=== PATIENT | male | born 1985 | race Caucasian/White ===

== ENCOUNTER 2023-01-24 04:22 | Emergency (ER) | payer OTHER, SELFPAY ==
[2023-01-24 04:25] VITALS: BP 146/79; PULSE 94; PULSE 95; RESP 18; TEMP 36.8; O2SAT 97; O2SAT 98; BMI 23.0
--- NOTE | 2023-01-24 04:26 | DI.CT.S_ITS ---
PROCEDURE: CT ABDOMEN PELVIS W CON INDICATIONS: Severe lower abd pain; hx ulcerative colitis TECHNIQUE: After the administration of IV contrast, axial sections were acquired from the lung bases to the pubic symphysis. Coronal and sagittal reformats were performed. For radiation dose reduction, the following was used: automated exposure control, adjustment of mA and/or kV according to patient size. COMPARISON: None. FINDINGS: Image quality: Excellent. Lung bases: Unremarkable. Small hiatal hernia. Heart: No significant findings. ABDOMEN: Liver: Normal size. Mild hepatic steatosis.. Gallbladder: Unremarkable. Biliary ducts: Unremarkable. Pancreas: Unremarkable. Spleen: Unremarkable. Adrenal Glands: Unremarkable. Kidneys and Ureters: Unremarkable. Stomach and Bowel: Stomach, small bowel loops, and colon are normal in caliber. There is diffuse colonic wall thickening involving sigmoid colon and rectum consistent with colitis/proctitis. There is also mild thickening of the descending colon. Diverticulosis. No acute diverticulitis. Moderate amount of stool in proximal colon. Peritoneum: No abnormal intraperitoneal fluid. No free air. Ventral Wall: No hernia. Abdominal Nodes: No retroperitoneal or mesenteric adenopathy by size criteria. Vessels: Aorta and inferior vena cava are normal in size. PELVIS: Pelvic Organs: Unremarkable. Bladder: Unremarkable. Pelvic Nodes: No enlarged lymph nodes. Miscellaneous: No inguinal hernias are seen. Bones: Unremarkable. IMPRESSION: 1. Diffuse colonic wall thickening involving sigmoid colon and the rectum. There is also mild thickening of the descending colon. The CT findings are consistent with colitis/proctitis. Differential diagnoses are inflammatory bowel disease and infectious colitis. 2. Diverticulosis without acute diverticulitis. 3. Moderate amount of stool in proximal colon. No significant discrepancy with the steward/stewardess night radiology preliminary report. Dictated by: Jacinta Giles M.D. on 01/24/2023 at 7:24 Approved by: Jacinta Giles M.D. on 01/24/2023 at 7:31
[2023-01-24 04:30] VITALS: BP 129/71; PULSE 97; O2SAT 97
[2023-01-24] MEDS: ONDANSETRON 4 MG/2 ML INJ IV (04:33)
[2023-01-24] MEDS: LACTATED RINGERS 1,000 ML 1000 ML IV (04:33)
[2023-01-24] MEDS: HYDROMORPHONE 0.5 MG INJ IV ×3 (04:33→07:06)
[2023-01-24 04:34] LABS: Add Manual Diff / Slide Review NO; Basophils Absolute Auto 0 /uL (0-100); Basophils Percent Auto 0.1 % (0-2); Eosinophils Absolute Auto 0 /uL (0-450); Eosinophils Percent Auto 0.2 % (2-4); Hematocrit 36.8 % (41-53); Hemoglobin 11.8 g/dL (13.5-17.5); Lymphocytes Absolute Auto 2100 /uL (1100-4500); Lymphocytes Percent Auto 16.7 % (25-40); Mean Corpuscular HGB Conc 32.1 % (30-36); Mean Corpuscular Hemoglobin 24.7 PG (26-34); Monocytes Absolute Auto 700 /uL (0-900); Monocytes Percent Auto 5.6 % (3-14); Neutrophils Absolute Auto 9600 /uL (1500-7000); Neutrophils Percent Auto 77.4 % (50-75); Platelet Count 423 X10^3/uL (150-400); Red Blood Cell Count 4.78 X10^6/uL (4.5-5.9); Red Cell Distribution Width 15.7 % (11.6-14.8); White Blood Cell Count 12.4 X10^3/uL (4.5-11.0)
--- NOTE | 2023-01-24 04:42 | ED_ITS ---
HPI - Abdominal Pain General Chief Complaint: Abdominal Pain Stated Complaint: Abd pain, hx of ulcerative colitis Time Seen by Provider: 01/24/23 04:25 Source: patient Mode of arrival: EMS History of Present Illness HPI narrative: 37-year-old male with history of ulcerative colitis and managed by Gastroenterology at [facility] presents by EMS for evaluation of 3 hours of nausea, vomiting, diarrhea and severe lower abdominal pain. He feels a bit fatigued and has had trouble keeping anything down. He is not dizzy or lightheaded. He briana es chest pain or shortness of breath. She denies any fever or chills. He denies urinary complaints such as dysuria, frequency or urgency. Related Data Previous Rx's Medication Instructions Recorded hydrocodone 5 mg-acetaminophen 325 1 tab PO Q4-6H PRN pain #10 tabs 01/24/23 mg tablet hyoscyamine sulfate 0.125 mg tablet 0.125 mg PO BID-QID PRN dyspepsia 01/24/23 #20 tabs ondansetron 4 mg disintegrating 4 mg PO TID-QID PRN nausea and 01/24/23 tablet vomiting #10 tabs Allergies Allergy/AdvReac Type Severity Reaction Status Date / Time No Known Drug Allergies Allergy Verified 01/24/23 04:28 Review of Systems Review of Systems Narrative: GENERAL: See HPI HEENT: Denies sinus pain, ear pain, sore throat, difficulty swallowing, dizziness. RESPIRATORY: Denies dyspnea, cough, wheezing, hemoptysis, sputum. CARDIOVASCULAR: Denies chest pain, palpitations, orthopnea, edema, GASTROINTESTINAL: See HPI : Denies dysuria, frequency, incontinence, hematuria, urinary retention. MUSCULOSKELETAL: denies weakness, joint pain, or bony pain SKIN: Denies rash, skin lesions, or other NEUROLOGIC: Denies weakness, headache, numbness, change in speech, confusion, seizures, incoordination. PSYCHIATRIC: No concerning psychosocial issues. 12 point review of systems is negative except for those stated above Exam Narrative Exam Narrative: GENERAL: 37[] year old patient appears stated age. Well-developed patient, in mild distress. HEAD: Atraumatic. Normocephalic. EYES: Pupils equal round and reactive. Extraocular motions intact. No scleral icterus. No injection or drainage. ENT: Nose without bleeding, purulent drainage. Throat without erythema, tonsillar hypertrophy or exudate. Airway patent. NECK: Trachea midline. Non tender CARDIOVASCULAR: Regular rate and rhythm without murmurs, gallops, or rubs. RESPIRATORY: Clear to auscultation. Breath sounds equal bilaterally. No wheezes, rales, or rhonchi. GASTROINTESTINAL: Abdomen soft, tender in the lower abdomen, nondistended. EXTREMITIES: No edema or joint tenderness. BACK: Nontender without deformity or crepitance. No flank tenderness. NEURO: AOx3. SKIN: No rash or erythema of visible areas Initial Vital Signs Initial Vital Signs: Vital Signs Temperature 98.3 F 01/24/23 04:25 Pulse Rate 94 H 01/24/23 04:25 Respiratory Rate 18 01/24/23 04:25 Blood Pressure 146/79 H 01/24/23 04:25 Pulse Oximetry 98 01/24/23 04:25 Oxygen Delivery Method Room Air 01/24/23 04:25 Course Orders Ordered: ED Orders 01/24/23 04:26 CT abdomen pelvis w con Stat 01/24/23 04:27 C-Reactive Protein Quant Stat Complete Blood Count AUTO DIFF Stat Comprehensive Metabolic Panel Stat Lactate (Lactic Acid) Stat Lipase Stat Magnesium Stat 01/24/23 04:31 COVID19 -Nasal RAPID Stat Discontinued Medications Hydrocodone Bitart/Acetaminophen (Hydrocodone/Acet 5/325 Prepack) 1 bottle MISC SEEINSTR ONE Stop: 01/24/23 06:05 Last Admin: 01/24/23 06:15 Dose: 1 bottle Documented By: ALEJANDRA Hydromorphone HCl (Hydromorphone 0.5 Mg Inj) 0.5 mg IV NOW ONE Stop: 01/24/23 04:26 Last Admin: 01/24/23 04:33 Dose: 0.5 mg Documented By: ALEJANDRA Hydromorphone HCl (Hydromorphone 0.5 Mg Inj) 0.5 mg IV NOW ONE Stop: 01/24/23 05:17 Last Admin: 01/24/23 05:25 Dose: 0.5 mg Documented By: ALEJANDRA Lactated Ringer's (Lactated Ringers) 1,000 mls @ 1,000 mls/hr IV BOLUS ONE Stop: 01/24/23 05:24 Last Infusion: 01/24/23 05:35 Dose: 0 mls/hr Documented By: Admin: 09/16/23 04:33 Dose: 1,000 mls/hr Documented By: ALEJANDRA Ondansetron HCl (Ondansetron 4 Mg/2 Ml Inj) 4 mg IV NOW ONE Stop: 01/24/23 04:26 Last Admin: 01/24/23 04:33 Dose: 4 mg Documented By: ALEJANDRA Ondansetron HCl (Ondansetron 4 Mg Odt Prepack) 1 bottle MISC SEEINSTR ONE Stop: 01/24/23 06:05 Last Admin: 01/24/23 06:15 Dose: 1 bottle Documented By: ALEJANDRA Vital Signs Vital signs: Vital Signs - 8 hr 01/24/23 04:25 Temperature 98.3 F Pulse Rate 94 H Respiratory Rate 18 Blood Pressure 146/79 H Pulse Oximetry 98 Oxygen Delivery Method Room Air MDM - Abdominal Pain Lab Data 01/24/23 04:27 01/24/23 04:27 Labs: Lab Results 01/24/23 01/24/23 01/24/23 Range/Units 04:27 04:27 04:27 WBC 12.4 H (4.5-11.0) X10^3/uL RBC 4.78 (4.5-5.9) X10^6/uL Hgb 11.8 L (13.5-17.5) g/dL Hct 36.8 L (41-53) % MCV 77.0 L (80-100) fL MCH 24.7 L (26-34) PG MCHC 32.1 (30-36) % RDW 15.7 H (11.6-14.8) % Plt Count 423 H (150-400) X10^3/uL Neut % (Auto) 77.4 H (50-75) % Lymph % (Auto) 16.7 L (25-40) % [place] % (Auto) 5.6 (3-14) % Eos % (Auto) 0.2 L (2-4) % Baso % (Auto) 0.1 (0-2) % Neut # (Auto) 9600 H (1558-7909) /uL Lymph # (Auto) 2100 (7781-6327) /uL [place] # (Auto) 700 (0-900) /uL Eos # (Auto) 0 (0-450) /uL Baso # (Auto) 0 (0-100) /uL Sodium 135 L (137-145) mmol/L Potassium 3.6 (3.4-5.1) mmol/L Chloride 102 (98-107) mmol/L Carbon Dioxide 26 (22-32) mmol/L BUN 12 (9-20) mg/dL Creatinine 1.01 (0.66-1.25) mg/dL Estimated GFR > 60 (>60) mL/min BUN/Creatinine Ratio 11.9 (6-22) Glucose 105 H (70-100) mg/dL Lactate 0.9 (0.7-2.1) mmol/L Calcium 9.0 (8.4-10.2) mg/dL Magnesium (1.6-2.3) mg/dL Total Bilirubin 0.3 (0.2-1.3) mg/dL AST 29 (17-59) IU/L ALT 29 (<50) IU/L Alkaline Phosphatase 102 (38-126) U/L C-Reactive Protein < 0.5 (<1.0) mg/dL Total Protein 6.5 (6.3-8.2) g/dL Albumin 3.8 (3.5-5.0) g/dL Globulin 2.7 (1.7-4.1) g/dL Albumin/Globulin Ratio 1.4 (1.0-2.8) Lipase (23-300) U/L SARS-CoV-2 (PCR) (Negative) 01/24/23 01/24/23 Range/Units 04:27 04:31 WBC (4.5-11.0) X10^3/uL RBC (4.5-5.9) X10^6/uL Hgb (13.5-17.5) g/dL Hct (41-53) % MCV (80-100) fL MCH (26-34) PG MCHC (30-36) % RDW (11.6-14.8) % Plt Count (150-400) X10^3/uL Neut % (Auto) (50-75) % Lymph % (Auto) (25-40) % [place] % (Auto) (3-14) % Eos % (Auto) (2-4) % Baso % (Auto) (0-2) % Neut # (Auto) (5152-9279) /uL Lymph # (Auto) (8965-3335) /uL [place] # (Auto) (0-900) /uL Eos # (Auto) (0-450) /uL Baso # (Auto) (0-100) /uL Sodium (137-145) mmol/L Potassium (3.4-5.1) mmol/L Chloride (98-107) mmol/L Carbon Dioxide (22-32) mmol/L BUN (9-20) mg/dL Creatinine (0.66-1.25) mg/dL Estimated GFR (>60) mL/min BUN/Creatinine Ratio (6-22) Glucose (70-100) mg/dL Lactate (0.7-2.1) mmol/L Calcium (8.4-10.2) mg/dL Magnesium 2.1 (1.6-2.3) mg/dL Total Bilirubin (0.2-1.3) mg/dL AST (17-59) IU/L ALT (<50) IU/L Alkaline Phosphatase (38-126) U/L C-Reactive Protein (<1.0) mg/dL Total Protein (6.3-8.2) g/dL Albumin (3.5-5.0) g/dL Globulin (1.7-4.1) g/dL Albumin/Globulin Ratio (1.0-2.8) Lipase 160 (23-300) U/L SARS-CoV-2 (PCR) Negative (Negative) Point of care testing: Urine Dip Bedside Urine Glucose Negative Bedside Urine Bilirubin - Negative Bedside Urine Ketone - Negative Urine Specific [place] 1.01 Bedside Urine Occult Blood - Negative Bedside Urine pH 6 Bedside Urine Protein - Negative Bedside Urine Urobilinogen - Negative Bedside Urine Nitrite - Negative Bedside Urine Leukocytes - Negative Esterase MDM Narrative Medical decision making narrative: CC: 37-year-old male with nausea, vomiting, diarrhea and lower abdominal pain Complicating co-morbidities: Ulcerative colitis Data collected from: Patient Medical records reviewed: Prior notes reviewed in our EMR Differential considered, but not limited to: Ulcer colitis versus COVID versus diverticulitis versus other Exam documented above, pertinent findings include: Heart rate regular, lungs clear, nonlabored breathing, abdomen soft but tender Lab Test results independently reviewed as above. Pertinent findings: Slight leukocytosis of 12.4 without significant left shift, electrolytes and renal function within normal Independently reviewed EKG as above Imaging studies independently reviewed: CT of abdomen and pelvis with IV contrast demonstrates some inflammatory change in the distal sigmoid colon consistent with his reported history of ulcerative colitis. Treatments: Dilaudid, IV fluids, Zofran Re-evaluations: Patient with improved pain control, tolerating orals Discussion: Patient with 3-4 hours of lower abdominal pain as well as nausea vomiting and diarrhea. History and physical exam are reassuring, labs are unremarkable, CT shows inflammatory change consistent with ulcerative colitis, no perforation, abscess or obstruction. Pain well controlled, patient tolerating orals, prescription sent to his pharmacy and encouraged to follow-up closely with his primary care provider Disposition: see below, along with detailed discharge instructions that have been reviewed with patient as well as indications for ED re-evaluation and additional outpatient follow up Discharge Plan Departure Patient Disposition: Home Clinical Impression: Ulcerative colitis without complications Instructions: DI for Ulcerative Colitis Activity Restrictions/Additional Instructions: *You have been diagnosed with [abdominal pain likely due to UC flare] * As we discussed your history and physical exam as well as labs and imaging are very reassuring. There is no evidence of any severe diagnoses that would require a specific or immediate intervention. *What to do: *Please continue to take your regular medications as directed. [x ] New medication prescriptions sent to your pharmacy: [ [facility] in [place]] *Please follow up with your primary care provider in 2-3 days, call for an appointment. Let them know you were seen in the Emergency Department and that we ask that you be seen in follow up. We will electronically transmit a record of today's note if your PCP is in our system *Please consider a clear liquid diet for the next 24-48 hours and then slowly advance to regular as tolerated. Also, try to avoid alcohol, nicotine, caffeine, spicy, acidic or fatty foods as this may worsen your symptoms *If you do not have a primary care provider please contact the [facility] Resource line at [phone]. They will ask some questions about your medical history and help get you set up with a doctor in the community. *Return to Emergency Department if you should have any new, worsening or concerning symptoms, such as [fever greater than 101 F, shaking chills, worse jose eduardo pain, persistent vomiting or other bothersome symptoms] Prescriptions: New hydrocodone-acetaminophen 5-325 mg tablet 1 tab PO Q4-6H PRN (Reason: pain) Qty: 10 0RF hyoscyamine sulfate 0.125 mg tablet 0.125 mg PO BID-QID PRN (Reason: dyspepsia) Qty: 20 0RF ondansetron 4 mg tablet,disintegrating 4 mg PO TID-QID PRN (Reason: nausea and vomiting) Qty: 10 0RF Referrals: ProviderAnaya [Primary Care Provider] - Stand Alone Forms: Patient Portal/API
[2023-01-24 04:45] LABS: Lactate (Lactic Acid) 0.9 mmol/L (0.7-2.1); Lipase 160 U/L (23-300); Magnesium 2.1 mg/dL (1.6-2.3)
[2023-01-24 04:47] LABS: Alanine Aminotransferase 29 IU/L (<50); Albumin 3.8 g/dL (3.5-5.0); Albumin Globulin Ratio 1.4 (1.0-2.8); Alkaline Phosphatase 102 U/L (38-126); Aspartate Aminotransferase 29 IU/L (17-59); BUN Creatinine Ratio 11.9 (6-22); Bilirubin Total 0.3 mg/dL (0.2-1.3); Blood Urea Nitrogen 12 mg/dL (9-20); Carbon Dioxide 26 mmol/L (22-32); Chloride 102 mmol/L (98-107); Estimated Glomerular Filt Rate > 60 mL/min (>60); Globulin 2.7 g/dL (1.7-4.1); Glucose 105 mg/dL (70-100); HEMOLYSIS < 15 (0-50); Potassium 3.6 mmol/L (3.4-5.1); Sodium 135 mmol/L (137-145); Total Protein 6.5 g/dL (6.3-8.2)
[2023-01-24 04:49] LABS: C-Reactive Protein Quant < 0.5 mg/dL (<1.0)
[2023-01-24 05:00] VITALS: BP 123/78; PULSE 83; O2SAT 98
[2023-01-24 05:38] VITALS: PULSE 94; O2SAT 95
[2023-01-24 05:43] LABS: COVID19 -Nasal RAPID Negative (Negative)
[2023-01-24 06:00] VITALS: PULSE 84; O2SAT 97
[2023-01-24] MEDS: HYDROCODONE/ACET 5/325 PREPACK 1 BOTTLE MISC (06:15)
[2023-01-24] MEDS: ONDANSETRON 4 MG ODT PREPACK 1 BOTTLE MISC (06:15)
== END 2023-01-24 07:09 | disposition home or self-care (01) ==
PROVIDERS: Emergency Provider Emergency Medicine
DX: K51.90 Ulcerative colitis, unspecified, without complications (principal); R11.2 Nausea with vomiting, unspecified; Z20.822 Contact with and (suspected) exposure to COVID-19
CPT/HCPCS: 36415; 74177; 80053; 81003; 83605; 83690; 83735; 85025; 86140; 87635; 96361; 96374; 96375; 96376; 99284; C9803; J1170; J2405; Q9967